=== PATIENT | male | born 1950 | race Caucasian/White ===

== ENCOUNTER 2023-08-01 01:46 | Observation (INO) | payer OTHER, MEDICARE ==
[2023-08-01] VITALS (12 sets, daily range): BP systolic 158–183; BP diastolic 79–94; PULSE 48–69; RESP 11–22; TEMP 98.8; O2SAT 95–100
[~2023-08-01] VITALS: Ht 177.8 cm; Wt 120.0 kg
[2023-08-01] MEDS: aspirin 325mg tablet PO ONE (02:13)
[2023-08-01] MEDS: mag hydrox/Alum hydrox/simeth 30ml oral suspension PO ONE (02:13)
[2023-08-01 02:28] LABS: BASOPHILS % (AUTO) 0.6 % (0-1); EOSINOPHILS % (AUTO) 0.8 % (0-6); HEMATOCRIT 46.1 % (42.0-52.0); HEMOGLOBIN 15.8 g/dl (14.0-17.9); LYMPHOCYTES # (AUTO) 1.7 X10'3 (1.1-4.8); LYMPHOCYTES % (AUTO) 26.9 % (21-51); MEAN CORPUSCULAR HEMOGLOBIN 31.4 PG (27.0-31.0); MEAN CORPUSCULAR HGB CONC 34.3 g/dL (33.0-36.5); MEAN CORPUSCULAR VOLUME 91.6 FL (78-98); MEAN PLATELET VOLUME 8.3 FL (7.4-10.4); MONOCYTES # (AUTO) 0.7 X10'3 (0-0.9); MONOCYTES % (AUTO) 11.1 % (2-12); NEUTROPHILS # (AUTO) 3.8 X10'3 (1.8-7.7); NEUTROPHILS % (AUTO) 60.6 % (42-75); PLATELET COUNT 154 X10'3 (140-440); RED BLOOD COUNT 5.04 X10'6 (4.70-6.10); RED CELL DISTRIBUTION WIDTH 13.6 % (11.5-14.5); WHITE BLOOD COUNT 6.3 X10'3 (4.5-11.0)
[2023-08-01 02:33] LABS: PROTHROMBIN TIME 10.4 SECONDS (9.0-12.0)
[2023-08-01 02:40] LABS: ALBUMIN 3.8 G/DL (3.4-5.0); ANION GAP 14 (8-16); BLOOD UREA NITROGEN 21 MG/DL (7-18); BUN/CREATININE RATIO 16.9 (10.0-20.0); CALCIUM 8.9 MG/DL (8.5-10.1); CHLORIDE 105 MMOL/L (99-107); CREATININE 1.24 MG/DL (0.60-1.10); GLUCOSE 142 MG/DL (70-104); POTASSIUM 3.9 MMOL/L (3.5-5.1); PRO BRAIN NATRIURETIC PEPTIDE < 30 PG/ML (0-125); SODIUM 143 MMOL/L (135-145); TOTAL CARBON DIOXIDE 24.2 MMOL/L (24-32); eCRCL 55 ML/MIN; eGFR 57 ML/MIN
[2023-08-01] MEDS ORDERED: magnesium 4gm in 100ml NS 100 ML IV PRN (04:55)
[2023-08-01] MEDS ORDERED: metoprolol tartrate 1mg/ml inj IV PRN (04:55)
[2023-08-01] MEDS ORDERED: acetaminophen 325mg tablet PO PRN (04:55)
[2023-08-01] MEDS ORDERED: mag hydrox/Alum hydrox/simeth 30ml oral suspension PO PRN (04:55)
[2023-08-01] MEDS ORDERED: aminophylline 250mg/10ml inj. IV PRN (04:55)
[2023-08-01] MEDS ORDERED: magnesium hydroxide 30ml (MOM) UD suspension PO PRN (04:55)
[2023-08-01] MEDS ORDERED: magnesium 2GM in 50ml NS 50 ML IV PRN (04:55)
[2023-08-01] MEDS ORDERED: magnesium Cl slow-release 64mg tablet PO PRN (04:55)
[2023-08-01] MEDS ORDERED: nitroGLYCERIN 0.4mg SUBLingual tab SL PRN (04:55)
[2023-08-01] MEDS ORDERED: potassium Cl 40MEQ/1/2NS 520ml 520 ML IV PRN (04:55)
[2023-08-01] MEDS ORDERED: morphine 2 MG/ML inj. syringe IV PRN (04:55)
[2023-08-01] MEDS ORDERED: ondansetron/PF 4mg/2ml inj IV PRN (04:55)
[2023-08-01] MEDS ORDERED: potassium Cl 20 mEq SR tablet PO PRN ×2 (04:55)
[2023-08-01] MEDS ORDERED: LOVA40TA2 PO (06:32)
[2023-08-01] MEDS ORDERED: LOSA50TA64 PO (06:32)
[2023-08-01] MEDS ORDERED: TERA5CAP4 PO (06:32)
[2023-08-01] MEDS ORDERED: TRIA1TAB3 PO (06:32)
[2023-08-01] MEDS: K and/or MAG REPLACEMENT MC SCH (07:45)
[2023-08-01 07:49] LABS: POTASSIUM 3.7 MMOL/L (3.5-5.1)
[2023-08-01] MEDS: docusate sod 100mg capsule PO SCH (08:00)
[2023-08-01] MEDS: heparin, porcine 5000 units/ml vial SQ SCH (08:10)
[2023-08-01] MEDS: regadenoson 0.4mg/5ml syringe IV PRN (13:47)
== END 2023-08-01 19:16 | disposition home or self-care (01) ==
LOC: ER 01:47 → INTOOBSV 04:59 → ED HOLD 04:59 → CANBEDREQ 18:57
PROVIDERS: ADMIT Internal Medicine Critical Care Medicine; ATTEND Family Medicine
DX: R07.89 Other chest pain (principal); N17.9 Acute kidney failure, unspecified; I11.0 Hypertensive heart disease with heart failure; N18.9 Chronic kidney disease, unspecified; G47.30 Sleep apnea, unspecified; E78.00 Pure hypercholesterolemia, unspecified; N40.0 Benign prostatic hyperplasia without lower urinary tract symptoms; E78.5 Hyperlipidemia, unspecified; Z87.891 Personal history of nicotine dependence; Z90.49 Acquired absence of other specified parts of digestive tract; Z79.899 Other long term (current) drug therapy
CPT/HCPCS: 36415; 71045; 78452; 80048; 83735; 83880; 84132; 84484; 85025; 85610; 93005; 93017; 93306; 94660; 94760; 96372; 99285; A9500; G0378; J1644; J2785